=== PATIENT | female | born 1995 | race Caucasian/White ===

== ENCOUNTER 2017-06-30 03:25 | Emergency (ER) | payer OTHER ==
[2017-06-30 03:31] VITALS: TEMP 98.6
[2017-06-30] MEDS ORDERED: KETOROLAC 30 MG/1 ML SDV IVP ONE (03:49)
[2017-06-30] MEDS ORDERED: NS 1,000 ML IV ONE (03:49)
--- NOTE | 2017-06-30 03:53 | EDPHY ---
H & P Stated Complaint: R flank pain; Hx of kidney stones Time Seen by Provider: 06/30/17 03:32 HPI/ROS: HPI The patient presents with 2-3 days of progressive right-sided flank pain which is achy in nature, started slowly, and is getting progressively worse. It does not radiate. It feels like symptoms she had about a year ago. She initially was diagnosed with pyelonephritis, however her pain continued and then she was seen a month or 2 later in diagnosed with kidney stones which required lithotripsy. She does not have any nausea or vomiting. She does not have any fever.. REVIEW OF SYSTEMS Constitutional: No fever, no chills. Eyes: No discharge. ENT: No sore throat. Cardiovascular: No chest pain, no palpitations. Respiratory: No cough, no shortness of breath. Gastrointestinal: No abdominal pain, no vomiting. Genitourinary: No hematuria. Musculoskeletal: No back pain. Skin: No rashes. Neurological: No headache. PMHx: Prior right-sided ureterolithiasis requiring lithotripsy Soc Hx: College student PHYSICAL General Appearance: Alert, no distress Eyes: Pupils equal and round no pallor or injection ENT, Mouth: Mucous membranes moist Respiratory: There are no retractions, lungs are clear to auscultation Cardiovascular: Regular rate and rhythm Gastrointestinal: Abdomen is soft and non-tender, no masses, bowel sounds normal, mild right-sided flank tenderness Neurological: A&O, moves all extremities Skin: Warm and dry, no rashes Musculoskeletal: Neck is supple non tender Extremities: symmetrical, full range of motion Psychiatric: Patient is oriented X 3, there is no agitation Source: Patient Exam Limitations: No limitations - Personal History LMP (Females 10-55): 1-7 Days Ago Current Tetanus/Diphtheria Vaccine: Unsure - Medical/Surgical History Hx Asthma: Yes Hx Chronic Respiratory Disease: No Hx Diabetes: No Hx Cardiac Disease: No Hx Renal Disease: No Hx Cirrhosis: No Hx Alcoholism: No Hx HIV/AIDS: No Hx Splenectomy or Spleen Trauma: No Other PMH: PMHx: kidney stones. PSHx: denies - Social History Smoking Status: Former smoker Constitutional: Initial Vital Signs Temperature (C) 37 C 06/30/17 03:28 Heart Rate 91 06/30/17 03:28 Respiratory Rate 14 06/30/17 03:28 Blood Pressure 120/70 06/30/17 03:28 O2 Sat (%) 95 06/30/17 03:28 O2 Delivery Mode Room Air Allergies/Adverse Reactions: No Known Allergies Allergy (Unverified 07/01/16 16:57) Home Medications: Medication Instructions Recorded Amphet Asp and D/Amphet [Adderall 15 mg PO 07/01/16 10 MG (*)] Ocella 3 mg-0.03 mg Tablet 06/30/17 Prozac 10 MG (*) 06/30/17 Medical Decision Making - Diagnostics Imaging Results: Renal ultrasound is normal, discussed with Dr. Jung of Radiology. Imaging: Discussed imaging studies w/ lacing cutter Radiologist Differential Diagnosis: This is a healthy 21-year-old female with history of right-sided kidney stones who presents with several days of progressive right flank pain. Differential diagnosis includes ureterolithiasis, pyelonephritis, constipation, less likely appendicitis. In the emergency department, labs were checked and were relatively unremarkable , UA was positive for very small amount of blood. Renal ultrasound showed no hydronephrosis or sign of stones. The patient received IV fluids for presumed volume depletion, Toradol, lidocaine with complete resolution of her pain. The cause of her pain is unclear. Urine culture has been sent. I will not start her on antibiotics yet. She could have passed a stone perhaps and that is why her ultrasound was normal. She feels well enough to go and will be discharged with instructions to take Tylenol and ibuprofen as needed. She will return if she is worse in any way. - Data Points Laboratory Results: Laboratory Results 06/30/17 03:50 06/30/17 03:50 06/30/17 06/30/17 06/30/17 03:50 03:50 03:50 WBC 10.64 10^3/uL H 10^3/uL (3.80-9.50) RBC 4.45 10^6/uL 10^6/uL (4.18-5.33) Hgb 13.4 g/dL g/dL (12.6-16.3) Hct 40.4 % % (38.0-47.0) MCV 90.8 fL fL (81.5-99.8) MCH 30.1 pg pg (27.9-34.1) MCHC 33.2 g/dL g/dL (32.4-36.7) RDW 12.5 % % (11.5-15.2) Plt Count 198 10^3/uL 10^3/uL (150-400) MPV 11.2 fL fL (8.7-11.7) Neut % (Auto) 74.7 % H % (39.3-74.2) Lymph % (Auto) 16.9 % % (15.0-45.0) [place] % (Auto) 7.5 % % (4.5-13.0) Eos % (Auto) 0.4 % L % (0.6-7.6) Baso % (Auto) 0.2 % L % (0.3-1.7) Nucleat RBC Rel Count 0.0 % % (0.0-0.2) Absolute Neuts (auto) 7.95 10^3/uL H 10^3/uL (1.70-6.50) Absolute Lymphs (auto) 1.80 10^3/uL 10^3/uL (1.00-3.00) Absolute Monos (auto) 0.80 10^3/uL 10^3/uL (0.30-0.80) Absolute Eos (auto) 0.04 10^3/uL 10^3/uL (0.03-0.40) Absolute Basos (auto) 0.02 10^3/uL 10^3/uL (0.02-0.10) Absolute Nucleated RBC 0.00 10^3/uL 10^3/uL (0-0.01) Immature Gran % 0.3 % % (0.0-1.1) Immature Gran # 0.03 10^3/uL 10^3/uL (0.00-0.10) Sodium 138 mEq/L mEq/L (134-144) Potassium 3.9 mEq/L mEq/L (3.5-5.2) Chloride 103 mEq/L mEq/L (97-110) Carbon Dioxide 23 mEq/l mEq/l (22-31) Anion Gap 12 mEq/L mEq/L (8-16) BUN 19 mg/dL mg/dL (7-23) Creatinine 1.2 mg/dL H mg/dL (0.6-1.0) Estimated GFR 57 Glucose 100 mg/dL mg/dL (70-100) Calcium 10.0 mg/dL mg/dL (8.5-10.4) Urine Color PALE YELLOW Urine Appearance CLEAR Urine pH 6.0 (5.0-7.5) Ur Specific [place] 1.005 (1.002-1.030) Urine Protein 1+ H (NEGATIVE) Urine Ketones NEGATIVE (NEGATIVE) Urine Blood 1+ H (NEGATIVE) Urine Nitrate NEGATIVE (NEGATIVE) Urine Bilirubin NEGATIVE (NEGATIVE) Urine Urobilinogen NEGATIVE EU EU (0.2-1.0) Ur Leukocyte Esterase NEGATIVE (NEGATIVE) Urine RBC 1-3 /hpf /hpf (0-3) Urine WBC 1-3 /hpf /hpf (0-3) Ur Epithelial Cells TRACE /lpf /lpf (NONE-1+) Urine Mucus TRACE /lpf /lpf (NONE-1+) Urine Glucose NEGATIVE (NEGATIVE) Medications Given: Discontinued Medications Sodium Chloride (Ns) 1,000 mls @ 0 mls/hr IV EDNOW ONE; Wide Open PRN Reason: Protocol Stop: 06/30/17 03:50 Last Admin: 06/30/17 03:57 Dose: 1,000 mls Lidocaine HCl 90 mg/ Sodium (Chloride) 109 mls @ 600 mls/hr IV EDNOW ONE Stop: 06/30/17 05:30 Last Admin: 06/30/17 05:57 Dose: 109 mls Ketorolac Tromethamine (Toradol) 15 mg IVP EDNOW ONE Stop: 06/30/17 03:50 Last Admin: 06/30/17 03:58 Dose: 15 mg Departure - Departure Disposition: Home, Routine, Self-Care Clinical Impression: Right flank pain Condition: Good Instructions: Flank Pain (ED) Additional Instructions: The cause of your flank pain is not exactly clear. It could be caused by a kidney stone that you passed. It could be caused by a urine infection that we do not see currently. We have sent her urine for culture testing. If it returns positive, we will call you. In the meantime, you should take ibuprofen 400 mg with acetaminophen a 1000 mg every 6 hours as needed for pain. Please return to the ER if you are worse in any way. Referrals: [facility],. [Clinic] - As per Instructions
[2017-06-30 04:00] LABS: % IMMATURE GRANULYOCYTES 0.3 % (0.0-1.1); ABSOLUTE IMMATURE GRANULOCYTES 0.03 10^3/uL (0.00-0.10); ADD DIFF? NO; ADD MORPH? NO; ADD SCAN? NO; ATYPICAL LYMPHOCYTE FLAG 10 (0-99); FRAGMENT RBC FLAG 0 (0-99); HEMATOCRIT 40.4 % (38.0-47.0); HEMOGLOBIN 13.4 g/dL (12.6-16.3); LEFT SHIFT FLG 0 (0-99); LIPEMIA HEMOLYSIS FLAG 80 (0-99); MEAN CELL HEMOGLOBIN 30.1 pg (27.9-34.1); MEAN CELL HEMOGLOBIN CONCENTR. 33.2 g/dL (32.4-36.7); MEAN CELL VOLUME 90.8 fL (81.5-99.8); MEAN PLATELET VOLUME 11.2 fL (8.7-11.7); PLATELET CLUMPS FLAG 0 (0-99); PLATELET COUNT 198 10^3/uL (150-400); RED BLOOD CELL COUNT 4.45 10^6/uL (4.18-5.33); RED CELL DISTRIBUTION WIDTH 12.5 % (11.5-15.2)
[2017-06-30 04:02] LABS: COLOR PALE YELLOW; LEUKOCYTE ESTERASE,URINE NEGATIVE (NEGATIVE); NITRITE,URINE NEGATIVE (NEGATIVE)
[2017-06-30 04:12] LABS: MUCUS TRACE /lpf (NONE-1+)
[2017-06-30 04:14] LABS: ANION GAP 12 mEq/L (8-16); CARBON DIOXIDE 23 mEq/l (22-31); CHLORIDE 103 mEq/L (97-110); CREATININE 1.2 mg/dL (0.6-1.0); GLOMERULAR FILTRATION RATE 57; GLUCOSE 100 mg/dL (70-100); POTASSIUM 3.9 mEq/L (3.5-5.2); SODIUM 138 mEq/L (134-144)
[2017-06-30] MEDS ORDERED: LIDOCAINE 1% 90 MG in NS 100 ML IV ONE (05:20)
[2017-06-30 06:10] VITALS: BP 114/79; PULSE 64; RESP 18; O2SAT 96
== END 2017-06-30 06:37 | disposition home or self-care (01) ==
DX: R10.9 Unspecified abdominal pain (principal); J45.909 Unspecified asthma, uncomplicated; E86.9 Volume depletion, unspecified; Z87.891 Personal history of nicotine dependence
CPT/HCPCS: 96374; J1885